=== PATIENT | male | born 1980 | race African-American/Black ===

== ENCOUNTER 2016-12-27 19:08 | Emergency (ER) | payer OTHER ==
[~2016-12-27] VITALS: Ht 182.9 cm; Wt 95.0 kg
[2016-12-27 19:20] LABS: MEAN CORPUSCULAR HGB CONC 36.1 % (32.0-36.0)
[2016-12-27 19:22] VITALS: BP 131/91; PULSE 99; RESP 20; TEMP 98.4; O2SAT 96
--- NOTE | 2016-12-27 19:38 | PD ---
HPI Chief Complaint: Psychiatric Symptoms Time Seen by Provider: 19:33 Travel History International Travel<30 days: No Contact w/Intl Traveler<30days: No Traveled to known affect area: No History of Present Illness HPI 36-year-old male is brought to the emergency department under [facility] act for psychiatric evaluation. Per the [facility] act report the patient has been increasingly paranoid stating that people are following him. The patient states that the people are following him and he is trying to run away and hide. States that they not speak to him or trying to harm him. He states this is been going on for several months. He states that he hears helicopters behind him as well. He states his friends told him that it might be the [employer]. The patient denies any medical complaints. He denies any chest pain, shortness of breath, abdominal pain, nausea, vomiting, diarrhea. He denies any history of mental illness. He denies alcohol or drug use. He denies suicidal or homicidal ideations. No other complaints. PFSH Past Medical History Medical History: Denies Significant Hx Past Surgical History Other Surgery: Yes (GERALD. HERNIA REPAIR, LASIK) Social History Alcohol Use: Yes (OCCAS.) Tobacco Use: No Substance Use: No (PT DENIES ) Allergies-Medications (Allergen,Severity, Reaction): Coded Allergies: No Known Allergies (Unverified , 12/27/16) Reported Meds & Prescriptions Reported Meds & Active Scripts Active No Active Prescriptions or Reported Medications Review of Systems Except as stated in HPI: all other systems reviewed are Neg Physical Exam Narrative GENERAL: Well-nourished and well-developed male patient in no acute distress who is nontoxic appearing. SKIN: Warm and dry. HEAD: Normocephalic and atraumatic. EYES: No injection, drainage, or hyphema noted. PERRLA. EOMI. ENT: No nasal drainage noted. Oropharynx is clear. NECK: Supple and the trachea is midline. CARDIOVASCULAR: Regular rate and rhythm. RESPIRATORY: Breath sounds are equal bilaterally with no accessory muscle use, wheezing, rhonchi, or crackles. GASTROINTESTINAL: Abdomen is soft, non-tender, and nondistended. MUSCULOSKELETAL: No obvious deformities, swelling, cyanosis, or ecchymosis is present throughout the upper and lower extremities. Patient has full range of motion without any signs of neurovascular compromise. NEUROLOGICAL: Awake, alert, and oriented. Normal speech and gait. Cranial nerves are grossly intact. Data Data Last Documented VS Vital Signs Date Time Temp Pulse Resp B/P Pulse Ox O2 Delivery O2 Flow Rate FiO2 12/27/16 19:22 98.4 99 20 131/91 96 Orders Complete Blood Count With Diff (12/27/16 19:19) Comprehensive Metabolic Panel (12/27/16 19:19) Psych Screen (12/27/16 19:19) Drug Screen, Random Urine (12/27/16 19:19) Alcohol (Ethanol) (12/27/16 19:19) Labs Laboratory Tests Test 12/27/16 19:37 White Blood Count 7.3 TH/MM3 Red Blood Count 4.92 MIL/MM3 Hemoglobin 16.2 GM/DL Hematocrit 45.0 % Mean Corpuscular Volume 91.4 FL Mean Corpuscular Hemoglobin 33.0 PG Mean Corpuscular Hemoglobin 36.1 % Concent Red Cell Distribution Width 12.9 % Platelet Count 291 TH/MM3 Mean Platelet Volume 8.4 FL Neutrophils (%) (Auto) 53.4 % Lymphocytes (%) (Auto) 35.7 % Monocytes (%) (Auto) 9.3 % Eosinophils (%) (Auto) 1.1 % Basophils (%) (Auto) 0.5 % Neutrophils # (Auto) 3.9 TH/MM3 Lymphocytes # (Auto) 2.6 TH/MM3 Monocytes # (Auto) 0.7 TH/MM3 Eosinophils # (Auto) 0.1 TH/MM3 Basophils # (Auto) 0.0 TH/MM3 CBC Comment AUTO DIFF Urine Opiates Screen NEG Urine Barbiturates Screen NEG Urine Amphetamines Screen NEG Urine Benzodiazepines Screen NEG Urine Cocaine Screen NEG Urine Cannabinoids Screen NEG MDM Medical Decision Making Medical Screen Exam Complete: Yes Emergency Medical Condition: Yes Differential Diagnosis Differential: Depression versus adjustment reaction versus anxiety versus PTSD versus psychosis NOS versus mood disorder NOS versus substance induced mood disorder versus ODD versus adjustment reaction versus schizophrenia versus bipolar disorder versus schizoaffective versus electrolyte abnormality Narrative Course Patient presents under a Led[place]ma act for paranoid delusions. Physical examination and vital signs are essentially unremarkable. Patient has no medical complaints to report. Psych screen has been ordered. If the laboratory results are unremarkable, the patient will be medically cleared for psychiatric evaluation and disposition. Diagnosis Primary Impression: Paranoid delusion Scripts No Active Prescriptions or Reported Meds Annie Do December 27, 2016 19:38
[2016-12-27 20:00] LABS: AUTOMATED NEUTROPHIL # 3.9 TH/MM3 (1.8-7.7); BASOPHIL % 0.5 % (0.0-2.0); EOSINOPHIL # 0.1 TH/MM3 (0-0.4); EOSINOPHIL % 1.1 % (0.0-4.0); LYMPH % 35.7 % (9.0-44.0); LYMPHOCYTE # 2.6 TH/MM3 (1.0-4.8); MEAN CELL VOLUME 91.4 FL (80.0-100.0); MONO % 9.3 % (0.0-8.0); NEUT % 53.4 % (16.0-70.0); PLATELET COUNT 291 TH/MM3 (150-450); RED BLOOD COUNT 4.92 MIL/MM3 (4.50-5.90); RED CELL DISTRIBUTION WIDTH 12.9 % (11.6-17.2); WHITE BLOOD COUNT 7.3 TH/MM3 (4.0-11.0)
--- NOTE | 2016-12-27 20:04 | PD ---
Physical Exam Narrative Patient was seen by my business assistant and signed out to me. Data Data Last Documented VS Vital Signs Date Time Temp Pulse Resp B/P Pulse Ox O2 Delivery O2 Flow Rate FiO2 12/27/16 19:22 98.4 99 20 131/91 96 Orders Complete Blood Count With Diff (12/27/16 19:19) Comprehensive Metabolic Panel (12/27/16 19:19) Psych Screen (12/27/16 19:19) Drug Screen, Random Urine (12/27/16 19:19) Alcohol (Ethanol) (12/27/16 19:19) Labs Laboratory Tests Test 12/27/16 19:37 White Blood Count 7.3 TH/MM3 Red Blood Count 4.92 MIL/MM3 Hemoglobin 16.2 GM/DL Hematocrit 45.0 % Mean Corpuscular Volume 91.4 FL Mean Corpuscular Hemoglobin 33.0 PG Mean Corpuscular Hemoglobin 36.1 % Concent Red Cell Distribution Width 12.9 % Platelet Count 291 TH/MM3 Mean Platelet Volume 8.4 FL Neutrophils (%) (Auto) 53.4 % Lymphocytes (%) (Auto) 35.7 % Monocytes (%) (Auto) 9.3 % Eosinophils (%) (Auto) 1.1 % Basophils (%) (Auto) 0.5 % Neutrophils # (Auto) 3.9 TH/MM3 Lymphocytes # (Auto) 2.6 TH/MM3 Monocytes # (Auto) 0.7 TH/MM3 Eosinophils # (Auto) 0.1 TH/MM3 Basophils # (Auto) 0.0 TH/MM3 CBC Comment AUTO DIFF Differential Comment AUTO DIFF CONFIRMED Sodium Level 138 MEQ/L Potassium Level 3.4 MEQ/L Chloride Level 104 MEQ/L Carbon Dioxide Level 25.2 MEQ/L Anion Gap 9 MEQ/L Blood Urea Nitrogen 14 MG/DL Creatinine 1.46 MG/DL Estimat Glomerular Filtration 67 ML/MIN Rate Random Glucose 105 MG/DL Calcium Level 9.2 MG/DL Total Bilirubin 1.4 MG/DL Aspartate Amino Transf 81 U/L (AST/SGOT) Alanine Aminotransferase 56 U/L (ALT/SGPT) Alkaline Phosphatase 64 U/L Total Protein 8.0 GM/DL Albumin 3.8 GM/DL Urine Opiates Screen NEG Urine Barbiturates Screen NEG Urine Amphetamines Screen NEG Urine Benzodiazepines Screen NEG Urine Cocaine Screen NEG Urine Cannabinoids Screen NEG Ethyl Alcohol Level LESS THAN 3 MG/DL MDM Supervised Visit with JENNY: Yes Interpretation(s) 2050 PM. CBC within normal limit. Potassium 3.4. Creatinine 1.46. Urine drug screen negative. Alcohol negative. Narrative Course Patient was seen by my business assistant and signed out to me. KCl 20 mEq by mouth given. 2051 PM. Patient is medically cleared for psychiatric evaluation and disposition. Diagnosis Primary Impression: Paranoid delusion Scripts No Active Prescriptions or Reported Meds Yariel Faulkner MD December 27, 2016 20:04
[2016-12-27 20:10] LABS: HEMO FLAGS AUTO DIFF
[2016-12-27 20:13] LABS: AMPHETAMINE, URINE NEG (NEG); BARBITURATES, URINE NEG (NEG); COCAINE, URINE NEG (NEG)
[2016-12-27 20:23] LABS: ANION GAP 9 MEQ/L (5-15)
[2016-12-27 20:26] LABS: ALKALINE PHOSPHATASE 64 U/L (45-117); ALT (GPT) 56 U/L (12-78); AST (GOT) 81 U/L (15-37); BICARBONATE 25.2 MEQ/L (21.0-32.0); BLOOD UREA NITROGEN 14 MG/DL (7-18); CHLORIDE 104 MEQ/L (98-107); GLOMERULAR FILTRATION RATE 67 ML/MIN (>89); POTASSIUM 3.4 MEQ/L (3.5-5.1); SODIUM (NA) 138 MEQ/L (136-145); TOTAL BILIRUBIN ADULT 1.4 MG/DL (0.2-1.0)
[2016-12-27 20:36] LABS: SCAN/DIFF AUTO DIFF CONFIRMED
[2016-12-27] MEDS ORDERED: POTASSIUM CHLORIDE 20 MEQ CONTROLLED RELEASE TAB PO ONE (21:00)
[2016-12-28 02:43] VITALS: BP 102/62; PULSE 74; RESP 18; O2SAT 99
[2016-12-28 08:43] VITALS: BP 106/61; PULSE 60; RESP 18; TEMP 97.8; O2SAT 98
== END 2016-12-28 10:31 ==
LOC: NEDAMB 19:08 → NEPD 12-28 10:31
DX: F22 Delusional disorders (principal)
CPT/HCPCS: 80053; 80307; 85025; 99285

== ENCOUNTER 2017-01-19 16:27 | Emergency (ER) | payer SELFPAY ==
[2017-01-19 16:28] VITALS: BP 126/93; PULSE 101; RESP 15; TEMP 98; O2SAT 99
[2017-01-19] MEDS ORDERED: CEPH500C PO (17:13)
[2017-01-19] MEDS ORDERED: IBUP-232 PO (17:13)
[2017-01-19] MEDS ORDERED: HYDR-3533 PO ×2 (17:13→17:17)
--- NOTE | 2017-01-19 17:13 | PD ---
HPI Chief Complaint: Laceration/Skin Injury Time Seen by Provider: 17:06 Travel History International Travel<30 days: No Contact w/Intl Traveler<30days: No Traveled to known affect area: No History of Present Illness HPI 36-year-old Afro-Citizen Of [place] male presents to emergency department with laceration to the tip of the left thumb. 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 Patient states his last tetanus was 2 years ago. He denies any other injury. Patient does not want to have an x-ray performed. Pain is 9 out of 10. Patient does not want a needle for anesthesia. He is allergic to penicillin. PFSH Past Surgical History Other Surgery: Yes (GERALD. HERNIA REPAIR, LASIK) Social History Alcohol Use: Yes (OCCAS.) Tobacco Use: No Substance Use: No Allergies-Medications (Allergen,Severity, Reaction): Coded Allergies: No Known Allergies (Unverified , 01/19/17) Reported Meds & Prescriptions Reported Meds & Active Scripts Active Lortab (Hydrocodone-Acetaminophen) 5-325 Mg Tab 1-2 Tab PO Q6H PRN Ibuprofen 600 Mg Tab 600 Mg PO Q6H PRN Cephalexin 500 Mg Cap 500 Mg PO Q8H Review of Systems Except as stated in HPI: all other systems reviewed are Neg General / Constitutional: No: Fever Eyes: No: Visual changes HENT: No: Headaches Cardiovascular: No: Chest Pain or Discomfort Respiratory: No: Shortness of Breath Gastrointestinal: No: Abdominal Pain Genitourinary: No: Dysuria Musculoskeletal: No: Pain Skin: No Rash Neurologic: No: Weakness Psychiatric: No: Depression Endocrine: No: Polydipsia Hematologic/Lymphatic: No: Easy Bruising Physical Exam Narrative GENERAL: Patient is in moderate distress. SKIN: Warm and dry. Normal color. Normal turgor. Patient has avulsion injury to the tip of the left thumb including the distal thumbnail measuring approximately 0.5 x 1 cm. There is no obvious bone or tendon injury. HEAD: Atraumatic. Normocephalic. EYES: Pupils equal and round. No scleral icterus. No injection or drainage. ENT: No nasal bleeding or discharge. Mucous membranes pink and moist. Pharynx is clear. Airway is patent. NECK: Trachea midline. Supple CARDIOVASCULAR: Regular rate and rhythm. RESPIRATORY: No accessory muscle use. Clear to auscultation. Breath sounds equal bilaterally. MUSCULOSKELETAL: Extremities without clubbing, cyanosis, or edema. No obvious deformities. Patient has normal function of the thumb without obvious tendon or bony injury. NEUROLOGICAL: Awake and alert. No obvious cranial nerve deficits. Motor grossly within normal limits. Five out of 5 muscle strength in the arms and legs. Normal speech. PSYCHIATRIC: Appropriate mood and affect; insight and judgment normal. Data Data Last Documented VS Vital Signs Date Time Temp Pulse Resp B/P Pulse Ox O2 Delivery O2 Flow Rate FiO2 01/19/17 16:28 98.0 101 15 126/93 99 Orders Acetamin-Hydrocod 325-5 Mg ([place] 5-325 (01/19/17 17:15) Cephalexin (Keflex) (01/19/17 17:15) MDM Medical Decision Making Medical Screen Exam Complete: Yes Emergency Medical Condition: Yes Differential Diagnosis Distal left thumb injury. Distal left thumb laceration. Avulsion injury the to distal left thumb. Narrative Course Patient is in pain but medically stable at time of exam. The wound is soaked in 10% Betadine saline solution 10 minutes. Patient is given Lortab 5/325 2 tabs by mouth now. Patient also given Keflex 500 mg by mouth. Suture is not warranted because of the type injury. Wound was covered with Xeroform gauze and bulky sterile dressing. Dressing and wound instructions were reviewed with the patient. Patient is continued on Keflex 500 mg 3 times a day 7 days. Patient is given ibuprofen 600 mg 4 times a day #40. Patient also given Lortab 5/325 one every 6 hours when necessary #20. Patient should follow-up in 4 days for wound check. Diagnosis Primary Impression: Laceration of skin of left thumb Qualified Code: S61.012A - Laceration of skin of left thumb, initial encounter [facility]errals: [facility] Primary Care Physician Patient Instructions: General Instructions, Laceration Without Closure (ED) Departure Forms: Work Release Special Instructions: Limited use of left hand until completely healed. Additional Instructions: Suture is not warranted because of the type injury. Wound was covered with Xeroform gauze and bulky sterile dressing. Dressing and wound instructions were reviewed with the patient. Patient is continued on Keflex 500 mg 3 times a day 7 days. Patient is given ibuprofen 600 mg 4 times a day #40. Patient also given Lortab 5/325 one every 6 hours when necessary #20. Patient should follow-up in 4 days for wound check. Med/Other Pt SpecificInfo: Prescription(s) given, Wound Care Scripts Hydrocodone-Acetaminophen (Lortab)5-325 Mg Tab1-2 Tab PO Q6H PRN (PAIN) #20 TAB Prov:Yariel Faulkner MD 01/19/17 Ibuprofen 600 Mg [id number] Mg PO Q6H PRN (Pain/Inflammation) #40 TAB Prov:Liv Lund MD 01/19/17 Cephalexin 500 Mg [id number] Mg PO Q8H #21 CAP Prov:Liv Lund MD 01/19/17 Disposition: 01 DISCHARGE HOME Condition: Stable Nirmal Bravo Jan 19, 2017 17:12
[2017-01-19] MEDS ORDERED: ACETAMINOPHEN/HYDROcodone 325 MG/5 MG TAB PO ONE (17:15)
[2017-01-19] MEDS ORDERED: CEPHALEXIN MONOHYDRATE 500 MG CAP PO ONE (17:15)
== END 2017-01-19 17:41 | disposition home or self-care (01) ==
LOC: NEPK 16:27
DX: S61.012A Laceration without foreign body of left thumb without damage to nail, initial encounter (principal); W31.2XXA Contact with powered woodworking and forming machines, initial encounter; Y93.H2 Activity, gardening and landscaping; Y92.89 Other specified places as the place of occurrence of the external cause; Y99.0 Civilian activity done for income or pay
CPT/HCPCS: 99284

== ENCOUNTER 2017-01-20 05:32 | Emergency (ER) | payer SELFPAY ==
[~2017-01-20] VITALS: Ht 175.3 cm; Wt 72.0 kg
[~2017-01-20 05:32] MED LIST: CEPH500C PO; HYDR-3533 PO; IBUP-232 PO
[2017-01-20 05:34] VITALS: BP 134/95; PULSE 110; RESP 15; TEMP 98.2; O2SAT 98
--- NOTE | 2017-01-20 06:24 | PD ---
HPI Chief Complaint: Laceration/Skin Injury Time Seen by Provider: 06:21 Travel History International Travel<30 days: No Contact w/Intl Traveler<30days: No Traveled to known affect area: No History of Present Illness HPI 36-year-old black male presents emergency department with a laceration to his left thumb. He states that he was seen last evening in the ER and had a dressing applied. He states that is been bleeding through the dressing. He initially had been cut at work using hedge trimmers. He denies any numbness, or tingling. He does complain of some mild pain. Throbbing in nature. PFSH Past Medical History Medical History: Denies Significant Hx Tetanus Vaccination: < 5 Years Past Surgical History Other Surgery: Yes (GERALD. HERNIA REPAIR, LASIK) Social History Alcohol Use: Yes (OCCAS.) Tobacco Use: No Substance Use: No Allergies-Medications (Allergen,Severity, Reaction): Coded Allergies: Penicillin (Verified Allergy, Intermediate, 01/20/17) Reported Meds & Prescriptions Reported Meds & Active Scripts Active Lortab (Hydrocodone-Acetaminophen) 5-325 Mg Tab 1-2 Tab PO Q6H PRN Ibuprofen 600 Mg Tab 600 Mg PO Q6H PRN Cephalexin 500 Mg Cap 500 Mg PO Q8H Review of Systems Except as stated in HPI: all other systems reviewed are Neg Physical Exam Narrative GENERAL: This is a well-nourished, well-developed patient, in no apparent distress. SKIN: No rashes, ecchymoses or lesions. Warm and dry. Patient has a partial amputation of the tip of the left thumb. There is no active bleeding. HEAD: Atraumatic. Normocephalic. EYES: PERRL, EOMI, no discharge or injection. No scleral icterus. EARS: Clear NOSE: Nasal turbinates appear normal. THROAT: Mucosa pink and moist. Airway patent. NECK: Trachea midline. supple, moves head freely. LUNGS: Clear to auscultation. CV: Regular in rhythm. ABDOMEN: Soft nontender. EXT: No clubbing cyanosis or edema. Data Data Last Documented VS Vital Signs Date Time Temp Pulse Resp B/P Pulse Ox O2 Delivery O2 Flow Rate FiO2 01/20/17 05:34 98.2 110 15 134/95 98 Room Air MDM Medical Decision Making Medical Screen Exam Complete: Yes Emergency Medical Condition: No Medical Record Reviewed: Yes Differential Diagnosis MDM: High Differential diagnoses: Fracture, sprain, strain, dislocation, contusion, neurovascular injury Narrative Course Patient's dressing is been taken down. There is no active bleeding. The wound is redressed. Patient's given 1 g of Tylenol by mouth. This is left thumb laceration recheck Diagnosis Primary Impression: Laceration of skin of left thumb Qualified Code: S61.012D - Laceration of skin of left thumb, subsequent encounter Patient Instructions: General Instructions Additional Instructions: Rest. Elevation. Continue your medications were prescribed earlier for pain. He may take Tylenol or Advil in place. Keep the dressing on in clean and dry for the next 3 days before he began local wound care. He may soak the dressing with tap water before attempting to remove it. Daily wound care with soap, water, Neosporin. Follow-up with a medical doctor in one week. Return to the ER if any problems. Med/Other Pt SpecificInfo: Wound Care Disposition: DISCHARGE HOME Condition: Stable Jovanny Coffman Jan 20, 2017 06:24
[2017-01-20] MEDS ORDERED: ACETAMINOPHEN 500 MG CPLT PO ONE (06:30)
== END 2017-01-20 06:28 | disposition home or self-care (01) ==
LOC: NEPD 05:32
DX: S61.012D Laceration without foreign body of left thumb without damage to nail, subsequent encounter (principal); W27.1XXD Contact with garden tool, subsequent encounter
CPT/HCPCS: 99283